=== PATIENT | female | born 1995 | race Caucasian/White ===

== ENCOUNTER 2019-12-30 11:24 | Outpatient (CLI) | payer BC ==
[2019-12-30] VITALS (7 sets, daily range): BP systolic 98–114; BP diastolic 65–74; PULSE 75–110; TEMP 98–98.9
[~2019-12-30] VITALS: Ht 175.3 cm; Wt 80.0 kg
--- NOTE | 2019-12-30 11:15 | NUR ---
[id number] 36.[address] Osorio's taken via wheelchair to LR 3 with complaint of possible SROM at 0900. Reports noticing increased discharge that was clear in color on toilet paper. Denies filling a pad or having constant trickle or gush of fluid. Reports irregular contracions off and on since this past Tuesday and now having more discomfort with them. Denies decreased movement or vaginal bleeding. 1125-Amnitest negative, increased clear mucous type discharge upon exam. SVE /-3, NELLIE and buzz. Updated on plan of care. VSS. Assessment complete by MaydaRN
[2019-12-30] MEDS ORDERED: PRENATAL (11:33)
--- NOTE | 2019-12-30 14:40 | NUR ---
PATIENT STATES HER STOMACH FEELS LESS TIGHT AND CAN ALREADY NOTICE A DECREASE IN HER CONTRACTIONS
--- NOTE | 2019-12-30 15:22 | NUR ---
GENNA STATES SHE IS NOT FEELING CONTRACTIONS ANYMORE
--- NOTE | 2019-12-30 15:24 | NUR ---
PATIENT STATES THIS IS THE FIRST TIME SHE HAS BEEN ABLE TO RELAX SINCE Leeann
== END 2019-12-30 16:30 | disposition home or self-care (01) ==
LOC: LDR 11:24 → LDRO 11:24
DX: O42.913 Preterm premature rupture of membranes, unspecified as to length of time between rupture and onset of labor, third trimester (principal); Z3A.36 36 weeks gestation of pregnancy
CPT/HCPCS: OP; J3105; J7120

== ENCOUNTER 2019-12-31 11:16 | Inpatient (IN) | payer BC ==
[~2019-12-31] VITALS: Ht 175.3 cm; Wt 80.5 kg
[2019-12-31] VITALS (23 sets, daily range): BP systolic 99–118; BP diastolic 58–78; PULSE 68–93; TEMP 97.7–98.3
[~2019-12-31 11:16] MED LIST: PRENATAL
--- NOTE | 2019-12-31 11:34 | NUR ---
1120 PATIENT HERE FROM [facility] OFFICE. EFM ON FHT 145. GOOD ACCELERATIONS NOTED AND BABY VERY ACTIVE. ASSESSMENT COMPLETED. OCCASIONAL IRREGULAR CONTRACTIONS NOTED. NOT FELT BY PATIENT. DR LOPEZ CALLED WITH UPDATE. NO NEW ORDERS NOTED
--- NOTE | 2019-12-31 12:48 | NUR ---
1150 FHT 150 AND DECREASED TO 90'S AND BACK TO 140. PATIENT REPOSITIONED. STATES ALL CONTRACTIONS IF FELT ARE MILD TODAY.
--- NOTE | 2019-12-31 12:50 | NUR ---
1230 ITZ SITS STRAIGHT UP IN BED. FHT OFF MONITOR STRIP. READJUSTED AND FHT 125 WITH VARIABLES NOTES. FHT TRACING NOTED NOT CONTECTED ON EFM MONITOR STRIP SO UNABLE TO CHART CORRECT FHT. SAO2 PLACED ON MOM AT THIS TIME TO MONITOR MOMS HEART REATE ALSO. DR LOPEZ CALLED WITH UPDATED.
--- NOTE | 2019-12-31 13:12 | NUR ---
1310 DR LOPEZ AT BEDSIDE. REVIEW MONITOR STRIP WITH PATIENT AND . DISCUSS ALL OPTIONS AT THIS TIME WITH PATIENT. SVE 1-2//-3. PLAN IS C SECTION TODAY. REPORT GIVEN TO Brittany IZQUIERDO TO ASSUME CARE OF PATIENT AT THIS TIME. FHT 130 ACCELERATIONS NOTED
--- NOTE | 2019-12-31 14:05 | NUR ---
PATIENT OFF EFM AND AMBULATING TO OPERATING ROOM
[2019-12-31 14:21] LABS: BASO % 0.1 % (0.0-2.0); EOS % 0.1 % (0-4.0); GRAN % 76.6 % (42.2-75.2); HEMATOCRIT 39.8 % (37.0-47.0); HEMOGLOBIN 13.4 g/dl (12.5-16.0); LYMPH # 2.1 (1.2-3.4); LYMPH % 14.6 % (20.0-51.0); MEAN CELL VOLUME 96 fl (80.0-100.0); MEAN CORPUSCULAR HEMOGLOBIN 32 pg (27.0-31.0); MEAN CORPUSCULAR HGB CONC 34 g/dl (33.0-37.0); MEAN PLATELET VOLUME 11.9 fl (7.4-10.4); MONO # 1.2 (0.1-0.6); MONO % 8.2 % (1.7-9.3); PLATELET COUNT 158 K/mm3 (130-400); RED BLOOD COUNT 4.16 M/mm3 (4.10-5.30); REDCELL DISTRIBUTION WIDTH-CV 12.3 % (11.5-14.5)
[2020-01-01] VITALS: BP 98/73; PULSE 65; TEMP 97.9
[2020-01-01 03:05] VITALS: BP 96/65; PULSE 69; TEMP 98.1
[2020-01-01 06:51] VITALS: BP 100/63; PULSE 76; TEMP 98.2
[2020-01-01] MEDS ORDERED: PERCOCET 325 MG1 TA2 PO (08:20)
[2020-01-01] MEDS ORDERED: MOTRIN 800800 MG/TAB PO (08:20)
== END 2020-01-01 11:40 | disposition home or self-care (01) | DRG 787 ==
LOC: LDRO 11:16 → LDR 13:15 → LDRO 13:15 → OB 15:30
PROVIDERS: Obstetrics & Gynecology; ADMIT Obstetrics & Gynecology
PROC: 10D00Z1 Extraction of Products of Conception, Low, Open Approach (ICD-10-PCS; principal; 2019-12-31)
DX: O99.02 Anemia complicating childbirth (principal); O98.52 Other viral diseases complicating childbirth; Z37.0 Single live birth; O76 Abnormality in fetal heart rate and rhythm complicating labor and delivery; B00.9 Herpesviral infection, unspecified; Z3A.36 36 weeks gestation of pregnancy
CPT/HCPCS: J0690; J1885; J2175; J2370; J2405; J2590; J3010; J7120

== ENCOUNTER → 2020-04-25 | Outpatient (CLI) | payer BC ==
[~2020-04-25] MED LIST changes: +MOTRIN 800800 MG/TAB PO; +PERCOCET 325 MG1 TA2 PO
== END ==
LOC: MC.RAD 13:15
DX: N64.59 Other signs and symptoms in breast (principal); N64.4 Mastodynia

== ENCOUNTER 2021-12-11 09:07 | Emergency (ER) | payer BC ==
[~2021-12-11] VITALS: Ht 175.3 cm; Wt 68.2 kg
[2021-12-11 09:11] VITALS: TEMP 98.2
[2021-12-11 10:13] LABS: BASO % 0.2 % (0.0-2.0); EOS % 0.8 % (0.0-4.0); GRAN # 2.8 K/mm3 (1.4-6.5); GRAN % 55.8 % (42.2-75.2); HEMATOCRIT 38.3 % (37.0-47.0); HEMOGLOBIN 13.1 g/dl (12.5-16.0); LYMPH # 1.7 K/mm3 (1.2-3.4); LYMPH % 33.7 % (20.0-51.0); MEAN CELL VOLUME 93 fl (80.0-100.0); MEAN CORPUSCULAR HEMOGLOBIN 32 pg (27-31); MEAN CORPUSCULAR HGB CONC 34 g/dl (33.0-37.0); MEAN PLATELET VOLUME 11.9 fl (7.4-10.4); MONO # 0.5 K/mm3 (0.1-0.6); MONO % 9.3 % (1.7-9.3); PLATELET COUNT 229 K/mm3 (130-400); RED BLOOD COUNT 4.11 M/mm3 (4.10-5.30); REDCELL DISTRIBUTION WIDTH-CV 12.2 % (11.5-14.5)
[2021-12-11 10:27] LABS: ALANINE AMINOTRANSFERASE 12 U/L (0-55); ALKALINE PHOSPHATASE 45 U/L (40-150); ANION GAP 11 mmol/L (7-16); AST,SGOT 14 U/L (5-34); BILIRUBIN,TOTAL 0.5 mg/dL (0.2-1.2); BLOOD UREA NITROGEN 9 mg/dL (7-19); C-REACTIVE PROTEIN 0.04 mg/dL (0.00-0.50); CARBON DIOXIDE 24 mmol/L (22-29); CHLORIDE 105 mmol/L (98-107); CREATININE, serum 0.85 mg/dL (0.57-1.11); GLUCOSE 88 mg/dL (70-99); SODIUM 140 mmol/L (136-145); TOTAL PROTEIN 7.3 gm/dL (6.2-8.1)
[2021-12-11 10:33] LABS: TROPONIN-I < 0.010 ng/mL (0.00-0.033)
[2021-12-11 10:52] LABS: ERYTHROCYTE SEDIMENTATION RATE 12 mm/hr (0-20)
[2021-12-11] MEDS ORDERED: COLCRYS0.6 MG PO ×2 (14:52→15:15)
[2021-12-11 15:20] VITALS: BP 103/63; PULSE 87
== END 2021-12-11 15:20 | disposition home or self-care (01) ==
LOC: COL.ER 09:07
PROVIDERS: Student in an Organized Health Care Education/Training Program
DX: I30.0 Acute nonspecific idiopathic pericarditis (principal)

== ENCOUNTER 2021-12-22 12:38 | Emergency (ER) | payer BC ==
[~2021-12-22] VITALS: Ht 175.3 cm; Wt 68.2 kg
[~2021-12-22 12:38] MED LIST changes: +COLCRYS0.6 MG PO
[2021-12-22 12:59] VITALS: TEMP 98.4
[2021-12-22 13:41] LABS: BASO % 0.2 % (0.0-2.0); EOS # 0.1 K/mm3 (0.0-0.7); EOS % 0.9 % (0.0-4.0); GRAN # 3.1 K/mm3 (1.4-6.5); GRAN % 51.7 % (42.2-75.2); HEMOGLOBIN 13.2 g/dl (12.5-16.0); LYMPH # 2.3 K/mm3 (1.2-3.4); LYMPH % 39.3 % (20.0-51.0); MEAN CELL VOLUME 93 fl (80.0-100.0); MEAN CORPUSCULAR HEMOGLOBIN 32 pg (27-31); MEAN CORPUSCULAR HGB CONC 34 g/dl (33.0-37.0); MONO # 0.5 K/mm3 (0.1-0.6); MONO % 7.7 % (1.7-9.3); PLATELET COUNT 217 K/mm3 (130-400); RED BLOOD COUNT 4.18 M/mm3 (4.10-5.30)
[2021-12-22 13:54] LABS: ALANINE AMINOTRANSFERASE 18 U/L (0-55); ALKALINE PHOSPHATASE 45 U/L (40-150); ANION GAP 9 mmol/L (7-16); AST,SGOT 17 U/L (5-34); BILIRUBIN,TOTAL 0.4 mg/dL (0.2-1.2); BLOOD UREA NITROGEN 8 mg/dL (7-19); C-REACTIVE PROTEIN 0.03 mg/dL (0.00-0.50); CALCIUM 9.2 mg/dL (8.4-10.2); CARBON DIOXIDE 25 mmol/L (22-29); CHLORIDE 107 mmol/L (98-107); CREATININE, serum 0.77 mg/dL (0.57-1.11); GLUCOSE 109 mg/dL (70-99); POTASSIUM 4.5 mmol/L (3.5-4.5); SODIUM 141 mmol/L (136-145); TOTAL PROTEIN 7.3 gm/dL (6.2-8.1)
[2021-12-22 14:05] LABS: ERYTHROCYTE SEDIMENTATION RATE 1 mm/hr (0-20)
[2021-12-22 14:08] LABS: TROPONIN-I < 0.010 ng/mL (0.00-0.033)
[2021-12-22] MEDS ORDERED: PREDNISONE50 MG PO (15:00)
[2021-12-22 15:26] VITALS: BP 109/82; PULSE 79
== END 2021-12-22 15:27 | disposition home or self-care (01) ==
LOC: COL.ER 12:38
PROVIDERS: Emergency Medicine
DX: I31.9 Disease of pericardium, unspecified (principal); Z28.310 Unvaccinated for COVID-19

== ENCOUNTER → 2021-12-24 | Outpatient (CLI) | payer BC ==
[~2021-12-24] MED LIST changes: +PREDNISONE50 MG PO
== END ==
LOC: ZCOL.LAB 18:24
DX: R06.02 Shortness of breath (principal)